=== PATIENT | female | born 1955 | race Caucasian/White ===

== ENCOUNTER → 2019-07-16 | Outpatient (CLI) | payer MEDICARE, OTHER ==
--- NOTE | 2019-07-17 04:54 | CT ---
EXAMINATION TYPE: CT abdomen pelvis w con DATE OF EXAM: 07/16/2019 COMPARISON: NONE HISTORY: 64-year-old female history of diverticulitis, Pre-surgical for colostomy reversal TECHNIQUE: Contiguous axial scanning of the abdomen and pelvis following administration of 100 ml Iso don 300 IV contrast. Delayed images through the kidneys and coronal/sagittal reconstructions perform ed. CT DLP: 1240 mGycm Automated exposure control for dose reduction was used. FINDINGS: The heart is upper limits of normal in size without pericardial effusion. Mild emphysematous change i n the visualized lower lungs and strandy atelectasis at the inferior lingula. The aorta is aneurysmal at the thoracoabdominal junction and 4.0 cm. Abdominal aortic aneurysm at the level between the celiac axis and SMA measures 5.1 x 4.2 cm on axial image 21 and sagittal image 37. Abdominal aorta by iliac stent graft just below the SMA takeoff. The sitka sac measures 5.0 x 4.8 cm . No obvious endoleak on the present exam. Retroaortic left renal vein. 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 8 cm on the left. Liver, adrenal glands, right kidney, spleen, and pancreas appear within normal limits. There seem to be some embolization coils in the right upper quadrant adjacent to the pancreatic head region. Tiny dependent gallstones. No abnormal gallbladder distention. A couple anterior upper pole renal cor tical cyst on the left measuring up to 1.7 cm. A few scattered prominent left mid abdominal mesenteric lymph nodes measure up to 1 cm, coronal image 37. There is rectus diastases with prominent anterior bulging and even extending anteriorly to angle for the pubis. The bulge contains multiple nonobstructed small bowel loops measuring up to 15.2 cm wide a nd 13.8 cm craniocaudal. Small to moderate-sized fat-containing epigastric ventral hernia measuring 6.0 cm wide and 2.9 cm crap shooter niocaudal. There appears to be a descending colostomy at the left abdomen with a 9.9 cm wide parastomal hernia c ontaining multiple nonobstructed and opacified small bowel loops. The sigmoid colon extends to the left lower quadrant where a cluster of tightly grouped bowel loops a re present with ill-defined intervening planes, refer to axial images 54 through 57 and sagittal imag e 43 there is some focal fluid seen in this region measuring 1.8 cm that could be endoluminal or coul d represent a chronic walled off abscess. Refer to sagittal image 43 and coronal image 49. Bladder incompletely distended. Uterus either small or surgically absent. Trace cul-de-sac free fluid is suggested. Neither ovary clearly delineated from adjacent bowel loops. A low hanging mesenteric l ymph node in the mid pelvis measures 1 cm. Bones: Degenerative changes at the hips and scattered degenerative disc disease mid and lower lumbar spine. Facet arthropathy lower lumbar spine. IMPRESSION: 1. LEFT MIDABDOMINAL DESCENDING COLOSTOMY. ASSOCIATED 9.9 CM WIDE PARASTOMAL HERNIA CONTAINING NONOBS TRUCTED SMALL BOWEL LOOPS. 2. THE REGION OF THE LUTZ'S POUCH IS NOT WELL DELINEATED. RECTUM AND SIGMOID COLON EXTEND UP TO TH E LEFT LOWER QUADRANT AND MELD WITH TIGHTLY CLUSTERED BOWEL LOOPS. THERE IS OBSCURATION OF INTERVENIN G PLANES AND SUGGESTION OF MILD FAT STRANDING. SCARRING OR RESIDUAL MILD INFLAMMATION IN THIS REGION IS DIFFICULT TO EXCLUDE. FOCAL 1.8 CM FLUID COULD BE ENDOLUMINAL OR COULD REPRESENT A SMALL, CHRONIC WALLED OFF ABSCESS IN THIS REGION, REFER TO AXIAL IMAGE 54. TRACE PELVIC FREE FLUID. 3. SOME BORDERLINE TO MILDLY ENLARGED LEFT-SIDED MESENTERIC LYMPH NODES MEASURING UP TO 1 CM LIKELY R EACTIVE. 4. ABDOMINAL AORTOBIILIAC ENDOVASCULAR STENT GRAFT WITH PROXIMAL LANDING ZONE JUST BELOW THE SMA TAKE OFF. PAUMA SAC MEASURES 5.0 X 4.8 CM. THE THORACOABDOMINAL JUNCTION IS ANEURYSMAL AT 4.0 CM AND THE UPPER ABDOMINAL AORTA IS ALSO ANEURYSMAL AT 5.1 X 4.2 CM. 5. ADDITIONALLY, THERE IS ANEURYSM OF THE RIGHT COMMON ILIAC ARTERY JUST AFTER THE RIGHT ILIAC MARI G ZONE OF 2.7 CM AND 1.8 CM ON THE LEFT. 6. RECTUS DIASTASES OF 15.2 CM WIDE AND PROMINENT ANTERIOR BULGING LAXITY ALONG THE LINEA ALBA.
== END | disposition home or self-care (01) ==
LOC: RADCTMAIN 15:40
PROVIDERS: ATTEND Surgery Plastic and Reconstructive Surgery
DX: K43.5 Parastomal hernia without obstruction or gangrene (principal); I71.4 Abdominal aortic aneurysm, without rupture; I72.3 Aneurysm of iliac artery; Z93.3 Colostomy status
CPT/HCPCS: 82565; 84520; 74177; Q9967